=== PATIENT | male | born 1975 | race Caucasian/White ===

== ENCOUNTER 2022-05-07 11:20 | Day surgery (SDC) | payer OTHER ==
[2022-05-06 14:55] VITALS: BMI 47.5
[2022-05-07] MEDS ORDERED: CEFAZOLIN 2 GM VIAL ONE (12:06)
[2022-05-07] MEDS ORDERED: Lidocaine 1% MPF 2 ML VIAL ONE (12:06)
[2022-05-07] MEDS ORDERED: Sodium Chloride 0.9% 100 ML ONE (12:06)
[2022-05-07] MEDS ORDERED: Bupivacaine PF 0.5% 30 ML VIAL ONE (12:27)
[2022-05-07] MEDS ORDERED: Fentanyl 100 MCG/2 ML VIAL ONE (12:27)
[2022-05-07] MEDS ORDERED: Dexamethasone 4 mg/ml Vial ONE (12:27)
[2022-05-07] MEDS ORDERED: Midazolam HCl 2 mg/2 ml Vial ONE (12:27)
[2022-05-07] MEDS ORDERED: Zolpidem Tartrate 5 MG TAB PO PRN (14:00)
[2022-05-07] MEDS ORDERED: HYDROcodone/Acetaminophen 10/325 mg Tablet PO PRN ×2 (14:00)
[2022-05-07] MEDS ORDERED: Ondansetron PF 4 MG/2 ML Vial IVP PRN (14:00)
[2022-05-07] MEDS ORDERED: traMADol HCl 50 MG TAB PO PRN ×2 (14:00)
[2022-05-07] MEDS ORDERED: Promethazine HCl 25 MG/ML VIAL IM PRN (14:00)
[2022-05-07] MEDS ORDERED: Ropivacaine 0.2% 550 ML 550 ML NERVE BLCK SCH (14:00)
[2022-05-07] MEDS ORDERED: HYDROmorphone 0.5 MG/0.5 ML SYRINGE ONE (14:31)
[2022-05-07] MEDS ORDERED: PROPOFOL 200 MG/20 ML VIAL ONE (14:49)
[2022-05-07] MEDS ORDERED: Ketorolac Tromethamine 30 MG/ML VIAL ONE (14:49)
[2022-05-07] MEDS ORDERED: Ondansetron PF 4 MG/2 ML Vial ONE (14:49)
[2022-05-07] MEDS ORDERED: Rocuronium Bromide 10 MG/ML (10ML VIAL) ONE (14:49)
[2022-05-07] MEDS ORDERED: NEOSTIGMINE 3 MG/3 ML SYR 3 MG/3 ML SYRINGE ONE (14:49)
[2022-05-07] MEDS ORDERED: Glycopyrrolate 0.2 MG/ML 5 ML SYRINGE ONE (14:49)
[2022-05-07] MEDS ORDERED: Lidocaine 1% PF 5 ML VIAL ONE (14:49)
[2022-05-07] MEDS ORDERED: ePHEDrine 50 MG/ML VIAL ONE (14:49)
[2022-05-07] MEDS ORDERED: Labetalol HCl 100 MG/20 ML VIAL ONE (14:49)
[2022-05-07] MEDS ORDERED: HYDROcodone/Acetaminophen 5/325 mg Tablet ONE (17:39)
== END 2022-05-07 18:20 | disposition home or self-care (01) ==
LOC: SDC 11:20
PROVIDERS: ATTEND Orthopaedic Surgery
PROC: 0QSG04Z Reposition Right Tibia with Internal Fixation Device, Open Approach (ICD-10-PCS; principal; 2022-05-07)
PROC: 0QSJ04Z Reposition Right Fibula with Internal Fixation Device, Open Approach (ICD-10-PCS; principal; 2022-05-07)
DX: S82.851A Displaced trimalleolar fracture of right lower leg, initial encounter for closed fracture (principal); S93.431A Sprain of tibiofibular ligament of right ankle, initial encounter; I10 Essential (primary) hypertension; F17.200 Nicotine dependence, unspecified, uncomplicated; Z79.899 Other long term (current) drug therapy; X58.XXXA Exposure to other specified factors, initial encounter; Y99.0 Civilian activity done for income or pay
CPT/HCPCS: 93005; 93010; A4306; C1713; C1776; J1100; J1170; J1885; J2250; J2405; J2704; J2795; J3010; J3490; S0020